=== PATIENT | female | born 1970 | race Caucasian/White ===

== ENCOUNTER → 2017-11-15 | Outpatient (CLI) | payer OTHER ==
[~2017-11-15] MED LIST: CARV3.12 PO; FURO20TA4 PO; LISI2.5T2 PO; LORA0.5T2 PO; THYR30TA2 PO
== END ==
LOC: OIH 13:16
PROVIDERS: ATTEND Internal Medicine Cardiovascular Disease
DX: Z13.6 Encounter for screening for cardiovascular disorders (principal)
CPT/HCPCS: 75571

== ENCOUNTER 2017-11-20 11:32 | Observation (INO) | payer BC, OTHER ==
[~2017-11-20] VITALS: Ht 165.1 cm; Wt 80.1 kg
[2017-11-20 11:58] LABS: APPEARANCE,URINE CLEAR (CLEAR); BILIRUBIN,URINE NEGATIVE (NEGATIVE); COLOR,URINE YELLOW (YELLOW); GLUCOSE, URINE (UA) NEGATIVE (NEGATIVE); KETONES,URINE NEGATIVE (NEGATIVE); LEUKOCYTE ESTERASE ,URINE NEGATIVE (NEGATIVE); NITRATE,URINE NEGATIVE (NEGATIVE); OCCULT BLOOD,URINE NEGATIVE (NEGATIVE); PH,URINE 6.5 (5.0-8.0); PROTEIN,URINE NEGATIVE (NEGATIVE); UROBILINOGEN,URINE 0.2 mg/dL (0.2-1.0)
[2017-11-20 11:59] LABS: BASOPHILS % (AUTO) 0.3 % (0.0-5.0); EOSINOPHILS % (AUTO) 1.7 % (0.0-8.0); HEMATOCRIT 42.3 % (36-48); LYMPHOCYTES % (AUTO) 24.3 % (21.0-51.0); MEAN CORPUSCULAR HEMOGLOBIN 30.4 pg (27.0-33.0); MEAN CORPUSCULAR HGB CONC 34.4 g/dL (32.0-36.0); MEAN CORPUSCULAR VOLUME 88.5 fL (79-99); MONOCYTES % (AUTO) 8.1 % (3.0-13.0); NEUTROPHILS % (AUTO) 65.6 % (40.0-77.0); NUCLEATED RED BLOOD CELLS 0.1 % (0.0-0.19); PLATELET COUNT (AUTO) 198 K/uL (130-400); RED BLOOD CELL COUNT(AUTO) 4.78 MIL/uL (4.00-5.50); RED CELL DISTRIBUTION WIDTH 13.4 % (11.0-15.5); WHITE BLOOD COUNT (AUTO) 6.7 K/uL (4.8-10.8)
[2017-11-20 12:07] LABS: CREATININE 0.7 mg/dL (0.5-1.5)
[2017-11-20 12:09] LABS: INR 0.91 (0.85-1.15); PARTIAL THROMBOPLASTIN TIME 25.1 SEC (26.3-35.5); PROTHROMBIN TIME 9.6 SEC (9.6-11.6)
[2017-11-20 12:20] LABS: ALBUMIN 4.1 g/dL (3.5-5.0); BILIRUBIN,TOTAL 0.5 mg/dL (0.2-1.0); CREATINE KINASE MB 6.6 ng/mL (0.5-3.6); THYROID STIMULATING HORMONE 3.17 uIU/mL (0.36-3.74); TOTAL PROTEIN, SERUM 8.2 g/dL (6.0-8.3)
[2017-11-20] MEDS ORDERED: SODIUM CHLORIDE 0.9% 1000ML 1,000 ML IV ONE ×2 (12:23→12:36)
[2017-11-20 12:24] LABS: B-TYPE NATRIURETIC PEPTIDE 50 pg/mL (0-100)
[2017-11-20] MEDS ORDERED: DOPAMINE HCL 400 MG/D5%-WATER 0 ML IV ONE (12:37)
[2017-11-20] MEDS: SODIUM CHLORIDE 0.9% 1000ML 1,000 ML IV SCH ×2 (13:01→19:31)
[2017-11-20] MEDS ORDERED: GUAIFENESIN-DM 200/20 MG 10 ML PO PRN (13:15)
[2017-11-20] MEDS ORDERED: MAG HYDROX/AL HYDROX/SIMETH ES 30 ML SUSP UDCUP PO PRN (13:15)
[2017-11-20] MEDS ORDERED: NITROGLYCERIN 0.4 MG SL TAB SL PRN (13:15)
[2017-11-20] MEDS ORDERED: MORPHINE SULFATE 4 MG/1ML SYG IV PRN (13:15)
[2017-11-20] MEDS ORDERED: ACETAMINOPHEN-CODEINE 300/30MG TAB PO PRN ×2 (13:15)
[2017-11-20] MEDS ORDERED: MORPHINE SULFATE 2 MG/ML 1ML SYG IV PRN (13:15)
[2017-11-20] MEDS ORDERED: ONDANSETRON HCL 4 MG/2 ML VIAL IV PRN (13:15)
[2017-11-20] MEDS ORDERED: ACETAMINOPHEN 325 MG TAB PO PRN ×2 (13:15)
[2017-11-20] MEDS ORDERED: POTASSIUM CHLORIDE 10% ELIXIR 20 MEQ/15 ML UDCUP PO PRN (13:15)
[2017-11-20] MEDS ORDERED: POTASSIUM CHLORIDE 20 MEQ ERTAB PO PRN (13:15)
[2017-11-20] MEDS ORDERED: POTASSIUM CHLORIDE 20MEQ/100ML 100 ML IV PRN (13:15)
[2017-11-20] MEDS ORDERED: LACTULOSE 20 GM/30 ML UDCUP PO PRN (13:15)
[2017-11-20] MEDS ORDERED: LIDOCAINE HCL-MPF 1% 2ML VIAL IVP PRN (13:15)
[2017-11-20] MEDS ORDERED: LORA0.5T2 PO (14:16)
[2017-11-20] MEDS ORDERED: LISI2.5T2 PO (14:16)
[2017-11-20] MEDS ORDERED: THYR30TA2 PO (14:16)
[2017-11-20] MEDS ORDERED: CARV3.12 PO (14:16)
[2017-11-20] MEDS ORDERED: FURO20TA4 PO (14:16)
[2017-11-20 14:20] VITALS: BP 135/73
[2017-11-20] MEDS ORDERED: LORAZEPAM 0.5 MG TABLET PO PRN (15:00)
[2017-11-20 16:13] VITALS: BP 127/73
[2017-11-20 16:14] VITALS: BP_SYST 101; BP_SYST 109; BP_DIAS 61; BP_DIAS 74
[2017-11-20 19:27] VITALS: BP 122/79
[2017-11-20] MEDS: FAMOTIDINE 20MG TAB 20 MG TAB PO SCH (20:40)
[2017-11-20 23:39] VITALS: BP 100/60
[2017-11-21 03:43] VITALS: BP_SYST 119; BP_SYST 134; BP_SYST 135; BP_DIAS 62; BP_DIAS 64; BP_DIAS 75
[2017-11-21 03:45] LABS: HEMATOCRIT 37.1 % (36-48); MEAN CORPUSCULAR HEMOGLOBIN 30.5 pg (27.0-33.0); MEAN CORPUSCULAR HGB CONC 33.8 g/dL (32.0-36.0); MEAN CORPUSCULAR VOLUME 90.4 fL (79-99); NUCLEATED RED BLOOD CELLS 0.1 % (0.0-0.19); PLATELET COUNT (AUTO) 178 K/uL (130-400); RED BLOOD CELL COUNT(AUTO) 4.11 MIL/uL (4.00-5.50); RED CELL DISTRIBUTION WIDTH 13.4 % (11.0-15.5); WHITE BLOOD COUNT (AUTO) 5.9 K/uL (4.8-10.8)
[2017-11-21 04:04] LABS: B-TYPE NATRIURETIC PEPTIDE 60 pg/mL (0-100)
[2017-11-21 04:15] LABS: CARBON DIOXIDE 29 mmol/L (21-32); CHLORIDE 107 mmol/L (101-111); CREATINE KINASE MB 4.2 ng/mL (0.5-3.6); CREATINE KINASE, TOTAL 38 U/L (21-232); CREATININE 0.7 mg/dL (0.5-1.5); GLOMERULAR FILTR. RATE CALC 95 mL/min (>60); GLUCOSE,RANDOM 98 mg/dL (70-105); MYOGLOBIN 34 ng/mL (10-92); POTASSIUM 3.8 mmol/L (3.5-5.1); SODIUM SERUM 142 mmol/L (136-145); TROPONIN I < 0.04 ng/mL (0.00-0.06); UREA NITROGEN, BLOOD 8 mg/dL (7-18)
[2017-11-21 07:00] VITALS: BP 121/70
[2017-11-21] MEDS ORDERED: THYROID PORK 30 MG PO SCH (07:30)
[2017-11-21] MEDS ORDERED: ASPIRIN 325 MG TABLET PO SCH (09:00)
[2017-11-21] MEDS ORDERED: ENOXAPARIN SODIUM 40 MG/0.4 ML SYRINGE SQ SCH (09:00)
[2017-11-21] MEDS: FAMOTIDINE 20MG TAB 20 MG TAB PO SCH (09:02)
[2017-11-21 11:00] VITALS: BP_SYST 116; BP_SYST 123; BP_SYST 127; BP_DIAS 71; BP_DIAS 73
[2017-11-21 16:00] VITALS: BP 129/89
== END 2017-11-21 17:00 | disposition home or self-care (01) ==
LOC: EDH 11:32 → EDHIP 11:33 → INTOOBSV 11:33 → 2AH 14:21
PROVIDERS: ADMIT Internal Medicine; ATTEND Internal Medicine
DX: I95.1 Orthostatic hypotension (principal); I20.0 Unstable angina; I10 Essential (primary) hypertension; I42.9 Cardiomyopathy, unspecified; E03.9 Hypothyroidism, unspecified; E66.3 Overweight; Z82.49 Family history of ischemic heart disease and other diseases of the circulatory system; Z88.2 Allergy status to sulfonamides; Z88.1 Allergy status to other antibiotic agents
CPT/HCPCS: 36415 ×2; 71045; 80048; 80053; 81003; 82550 ×2; 82553 ×2; 83874; 83880 ×2; 84443; 84484 ×2; 85025; 85027; 85610; 85730; 93005 ×2; 93306; 96360; 96361 ×2; 96372; 99291; G0378 ×29; J1650; J7030 ×3; J1265

== ENCOUNTER → 2024-09-07 | Outpatient (CLI) | payer OTHER ==
[~2024-09-07] MED LIST changes: +LISI2.5T13 PO; -LISI2.5T2 PO
--- NOTE | 2024-09-07 14:52 | HMCIMG ---
SHOULDER COMP 2+VWS RT REASON: RIGHT SHOULDER PAIN TECHNIQUE: 2 views were obtained. FINDINGS: There is no evidence of fracture or dislocation. There is no joint effusion. The soft tissues appear unremarkable. There is no evidence of a radiopaque foreign body. IMPRESSION: No acute findings.
== END | disposition home or self-care (01) ==
LOC: RAH 13:54
PROVIDERS: ATTEND Internal Medicine
DX: M25.511 Pain in right shoulder (principal); M75.51 Bursitis of right shoulder
CPT/HCPCS: 73030